=== PATIENT | female | born 1985 | race Caucasian/White ===

== ENCOUNTER 2018-09-12 14:24 | Inpatient (IN) | payer OTHER, MEDICAID ==
[2018-09-12 16:15] LABS: RUPTURE FETAL MEMBRANES POSITIVE (NEGATIVE)
[2018-09-12] MEDS ORDERED: TERBUTALINE 1 ML (16:25)
[2018-09-12] MEDS ORDERED: OXYTOCIN 30 UNITS/LR 500 ML IV (18:30)
[2018-09-12] MEDS ORDERED: OXYCODONE/ASPIRIN (4.88/325) TAB PO (18:30)
[2018-09-12] MEDS ORDERED: CARBOPROST 250 MCG INJ IM (18:30)
[2018-09-12] MEDS ORDERED: BUTORPHANOL 2 MG INJ IV (18:30)
[2018-09-12] MEDS ORDERED: IBUPROFEN 600 MG TAB PO (18:30)
[2018-09-12] MEDS ORDERED: MISOPROSTOL 200 MCG TAB PR (18:30)
[2018-09-12] MEDS ORDERED: LIDOCAINE 1% (MPF) 30 ML INJ INJ (18:30)
[2018-09-12] MEDS ORDERED: METHYLERGONOVINE 0.2 MG INJ IM (18:30)
[2018-09-12] MEDS: LACTATED RINGER'S 1,000 ML IV (18:32)
[2018-09-12 18:46] LABS: ADD MAN DIFF? NO
[2018-09-12 18:48] LABS: BASOPHILS % 0.3 % (0.0-2.0); EOSINOPHILS # 0.1 10^3/ul (0.0-0.5); EOSINOPHILS % 0.6 % (0.0-7.0); HEMATOCRIT 34.2 % (37.0-47.0); HEMOGLOBIN 11.5 g/dl (12.0-16.0); LYMPHOCYTES # 2.5 10^3/ul (0.8-2.9); LYMPHOCYTES % 23.4 % (15.0-51.0); MEAN CORPUSCULAR HEMOGLOBIN 29.2 pg (29.0-33.0); MEAN CORPUSCULAR HGB CONC 33.6 g/dl (32.0-37.0); MEAN CORPUSCULAR VOLUME 86.8 fl (82.0-101.0); MEAN PLATELET VOLUME 10.6 fl (7.4-10.4); MONOCYTE # 0.4 10^3/ul (0.3-0.9); MONOCYTES % 3.4 % (0.0-11.0); NEUTROPHIL # 7.7 10^3/ul (1.6-7.5); NEUTROPHILS % 71.8 % (39.0-77.0); PLATELET COUNT 236 10^3/UL (140-415); RED BLOOD COUNT 3.94 10^6/ul (4.20-5.40); RED CELL DISTRIBUTION WIDTH 12.7 % (11.5-14.5)
[2018-09-12 18:48] LABS: WHITE BLOOD COUNT 10.7 10^3/ul (4.8-10.8)
[2018-09-12 18:52] LABS: PARTIAL THROMBOPLASTIN TIME 31.9 Sec (23.0-35.0); PROTIME 13.3 Sec (11.9-14.9)
[2018-09-12] MEDS: MISOPROSTOL 50 MCG CAPSULE VAG (20:59)
[2018-09-12 22:06] LABS: HEPATITIS B SURFACE ANTIGEN NEGATIVE (NEGATIVE)
[2018-09-12 22:15] LABS: HIV 1&2 ANTIBODY NEGATIVE (NEGATIVE)
[2018-09-13] MEDS: MISOPROSTOL 200 MCG TAB VAG (00:25)
[2018-09-13] MEDS: LACTATED RINGER'S 1,000 ML IV (02:17)
[2018-09-13] MEDS: MISOPROSTOL 200 MCG TAB PO ×2 (05:18→08:00)
[2018-09-13] MEDS: OXYTOCIN 30 UNITS/LR 500 ML IV ×3 (06:21→10:46)
[2018-09-13 08:50] LABS: ADD MAN DIFF? NO
[2018-09-13] MEDS ORDERED: MISOPROSTOL 200 MCG TAB PR (09:00)
[2018-09-13] MEDS ORDERED: OXYCODONE/ASPIRIN (4.88/325) TAB PO (09:00)
[2018-09-13] MEDS ORDERED: CARBOPROST 250 MCG INJ IM (09:00)
[2018-09-13] MEDS ORDERED: SENNA/DOCUSATE NA (8.6MG/50MG) TAB PO (09:00)
[2018-09-13] MEDS ORDERED: NACL 0.9% 3 ML SYG IV (09:00)
[2018-09-13] MEDS ORDERED: METHYLERGONOVINE 0.2 MG INJ IM (09:00)
[2018-09-13] MEDS ORDERED: OXYTOCIN 30 UNITS/LR 500 ML IV (09:00)
[2018-09-13 09:01] LABS: BASOPHILS % 0.3 % (0.0-2.0); EOSINOPHILS % 0.1 % (0.0-7.0); HEMATOCRIT 32.9 % (37.0-47.0); LYMPHOCYTES # 1.8 10^3/ul (0.8-2.9); LYMPHOCYTES % 15.5 % (15.0-51.0); MEAN CORPUSCULAR HEMOGLOBIN 28.9 pg (29.0-33.0); MEAN CORPUSCULAR HGB CONC 33.4 g/dl (32.0-37.0); MEAN CORPUSCULAR VOLUME 86.6 fl (82.0-101.0); MEAN PLATELET VOLUME 10.5 fl (7.4-10.4); MONOCYTE # 0.4 10^3/ul (0.3-0.9); NEUTROPHIL # 9.5 10^3/ul (1.6-7.5); NEUTROPHILS % 80.4 % (39.0-77.0); PLATELET COUNT 239 10^3/UL (140-415); RED CELL DISTRIBUTION WIDTH 12.5 % (11.5-14.5)
[2018-09-13 09:01] LABS: WHITE BLOOD COUNT 11.8 10^3/ul (4.8-10.8)
[2018-09-13] MEDS: SENNA/DOCUSATE NA (8.6MG/50MG) TAB PO (09:33)
[2018-09-13] MEDS: IBUPROFEN 600 MG TAB PO (11:37)
[2018-09-13 16:22] LABS: RAPID PLASMA REAGIN NONREACTIVE (NR)
[2018-09-15] MEDS ORDERED: DIPHTH/TET/ACEL PERTUSS (ADULT) 0.5 ML VIAL IM* (09:00)
== END 2018-09-13 12:50 | disposition home or self-care (01) | DRG 807 ==
LOC: OBT 14:24 → L-D 14:28 → OBT 17:10 → L-D 17:10
PROVIDERS: Obstetrics & Gynecology
PROC: 10E0XZZ Delivery of Products of Conception, External Approach (ICD-10-PCS; principal; 2018-09-13)
DX: O36.4XX0 Maternal care for intrauterine death, not applicable or unspecified (principal); Z37.1 Single stillbirth; Z3A.16 16 weeks gestation of pregnancy
CPT/HCPCS: 76815; 76856; 84112; 85025; 85610; 85730; 86592; 86703; 86850; 86900; 86901; 87340; 88307